=== PATIENT | female | born 1990 | race Caucasian/White ===

== ENCOUNTER → 2020-05-28 03:08 | Outpatient (CLI) | payer MEDICAID ==
[2015-11-04 10:53] VITALS: BMI 25.0
[~2020-05-28 03:08] MED LIST: CLONAZEPAM2 MG/TAB PO; EPITOL200 MG PO; FLAGYL500 MG PO; HYDROCODON-ACE1 EAC6 PO; PRENATAL COMPLE1 TAB PO; PROZAC20 MG PO; amphetamine salts PO
[2020-05-28 04:28] LABS: BILIRUBIN NEGATIVE (NEGATIVE); GLUCOSE NEGATIVE (NEGATIVE); KETONE NEGATIVE (NEGATIVE); NITRITE NEGATIVE (NEGATIVE); UROBILINOGEN NORMAL (NORMAL)
[2020-05-28 04:36] LABS: UDS - AMPHET NEGATIVE QUAL (NEGATIVE); UDS - BARB NEGATIVE QUAL (NEGATIVE); UDS - BENZO NEGATIVE QUAL (NEGATIVE); UDS - COCAINE NEGATIVE QUAL (NEGATIVE); UDS - OPIATE NEGATIVE QUAL (NEGATIVE); UDS - PCP NEGATIVE QUAL (NEGATIVE); UDS - THC NEGATIVE QUAL (NEGATIVE)
[2020-05-28 07:58] LABS: HEMATOCRIT 26.2 % (36.0-48.0); HEMOGLOBIN 8.5 g/dL (12-16); MCH 24.8 pg (26.0-34.0); MCHC 32.4 g/dL (31.0-37.0); MCV 76.4 fL (80.0-100.0); PLATELET COUNT 370 10x3/uL (130-400); RBC 3.43 10x6/uL (4.00-5.40); RDW 14.1 % (11.5-14.5); WBC 13.2 10x3/uL (4.8-10.8)
[2020-05-28 08:06] LABS: FERN TEST NEGATIVE (NEGATIVE)
[2020-05-29 07:15] LABS: HEPATITIS C ANTIBODY >11.0 S/CO RAT (0.0-0.9); RAPID PLASMA REAGIN Non Reactive (Non Reactive)
[2020-05-29 11:10] LABS: RUBELLA IGG <0.90 index (Immune >0.99)
== END | disposition home or self-care (01) ==
LOC: D.LDO 03:08
PROVIDERS: ATTEND Student in an Organized Health Care Education/Training Program
DX: O26.893 Other specified pregnancy related conditions, third trimester (principal); Z3A.35 35 weeks gestation of pregnancy; N85.8 Other specified noninflammatory disorders of uterus